=== PATIENT | female | born 1985 | race Caucasian/White ===

== ENCOUNTER → 2017-06-27 | Outpatient (CLI) | payer BC ==
--- NOTE | ~2017-06-27 | OR ---
ADMIT: 06/27/2017 RM/LOC: [facility] MR#: [id number] [address] [id number] [place] [address] [place] [address] Operative/Delivery Room Report SEX: F AGE: 32 : 1985 SURGERY DATE: 06/27/2017 SURGEON: Sabina Simpson MD PREOPERATIVE DIAGNOSIS: Primary infertility. POSTOPERATIVE DIAGNOSIS: Primary infertility. PROCEDURE: Hysterosalpingogram. 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 FINDINGS: Normal-appearing uterus with patent fallopian tubes bilaterally. DESCRIPTION OF PROCEDURE: The patient was taken to the fluoroscopy suite with the risks, benefits, and alternatives to the procedure were discussed with the patient. She expressed her understanding and agreed to proceed with the procedure. A speculum was placed in the patient's vagina and the cervix was cleansed with Betadine x3. A single-tooth tenaculum was then applied to the anterior lip of the cervix. The previously flushed acorn uterine manipulator was then inserted through the cervix. The 7 mL of Isovue-300 contrast were injected under direct fluoroscopy. The uterine cavity was noted to be normal. Bilateral fill and spill of the fallopian tubes were noted. The tubes were noted to have normal caliber and no hydrosalpinx was apparent. The total fluoroscopy time was less than 1 minute. The instruments were then removed from the patient's vagina with no bleeding noted from the cervix. The patient tolerated the procedure well. Sabina Simpson MD/ gee JOB #: [id number] CC: Sabina Simpson, Attending Physician Sabina Simpson, Family Physician
== END | disposition home or self-care (01) ==
LOC: RAD.S 09:00
PROC: BU12YZZ Fluoroscopy of Bilateral Fallopian Tubes using Other Contrast (ICD-10-PCS; principal; 2017-06-27)
DX: N97.9 Female infertility, unspecified (principal)